=== PATIENT | male | born 1960 | race Caucasian/White ===

== ENCOUNTER 2017-07-04 14:42 | Inpatient (IN) | payer MEDICAID ==
[~2017-07-04] VITALS: Ht 182.9 cm; Wt 141.0 kg
[2017-07-04 16:48] LABS: BASOPHILS % (AUTO) 0.3 % (0-1); EOSINOPHILS # (AUTO) 0.1 X10'3 (0-0.9); EOSINOPHILS % (AUTO) 2.4 % (0-6); HEMATOCRIT 40.1 % (42.0-52.0); HEMOGLOBIN 13.7 g/dl (14.0-17.9); LYMPHOCYTES # (AUTO) 0.5 X10'3 (1.1-4.8); LYMPHOCYTES % (AUTO) 15.6 % (21-51); MEAN CORPUSCULAR HEMOGLOBIN 32.6 PG (27.0-31.0); MEAN CORPUSCULAR VOLUME 95.8 FL (78-98); MEAN PLATELET VOLUME 8.8 FL (7.4-10.4); MONOCYTES # (AUTO) 0.3 X10'3 (0-0.9); MONOCYTES % (AUTO) 10.1 % (2-12); NEUTROPHILS # (AUTO) 2.4 X10'3 (1.8-7.7); NEUTROPHILS % (AUTO) 71.6 % (42-75); PLATELET COUNT 59 X10'3 (140-440); RED BLOOD COUNT 4.19 X10'6 (4.70-6.10); RED CELL DISTRIBUTION WIDTH 15.1 % (11.5-14.5); WHITE BLOOD COUNT 3.4 X10'3 (4.5-11.0)
[2017-07-04 16:59] LABS: INR 1.3 INR; PARTIAL THROMBOPLASTIN TIME 32 SECONDS (22-32); PROTHROMBIN TIME 13.8 SECONDS (9.0-12.0)
[2017-07-04 17:04] LABS: ALBUMIN 2.3 G/DL (3.4-5.0); ANION GAP 8 (8-16); BILIRUBIN,TOTAL 1.4 MG/DL (0.1-1.0); BLOOD UREA NITROGEN 11 MG/DL (7-18); BUN/CREATININE RATIO 10.8 (5.4-32.0); CALCIUM 8.2 MG/DL (8.5-10.1); CHLORIDE 105 MMOL/L (99-107); CREATININE 1.02 MG/DL (0.60-1.10); POTASSIUM 3.8 MMOL/L (3.5-5.1); SODIUM 139 MMOL/L (135-145); TOTAL CARBON DIOXIDE 25.9 MMOL/L (24-32); TOTAL PROTEIN 7.4 G/DL (6.4-8.2); eGFR 76 ML/MIN
[2017-07-04 17:05] LABS: ALANINE AMINOTRANSFERASE 70 U/L (12-78); ALBUMIN/GLOBULIN RATIO 0.5 (1.1-1.5); ALKALINE PHOSPHATASE 75 IU/L (46-116); ASPARTATE AMINO TRANSFERASE 94 U/L (10-37)
[2017-07-04 17:08] LABS: GLUCOSE 126 MG/DL (70-104); LACTIC SEPSIS 2.1 MMOL/L (0.4-2.0)
[2017-07-04 17:14] LABS: CREATINE KINASE 252 U/L (39-308); ETHANOL < 0.010 GM/DL (0.0-0.010); MAGNESIUM 1.6 MG/DL (1.5-2.4); PHOSPHORUS 3.3 MG/DL (2.3-4.5)
[2017-07-04] MEDS ORDERED: lactulose 20gm/30ml cup PO ONE (17:50)
[2017-07-04] MEDS ORDERED: magnesium hydroxide 30ml (MOM) UD suspension PO PRN (18:40)
[2017-07-04] MEDS ORDERED: morphine 4 MG/ML inj SYRINge IV PRN (18:40)
[2017-07-04] MEDS ORDERED: ondansetron/PF 4mg/2ml inj IV PRN (18:40)
[2017-07-04] MEDS ORDERED: acetaminophen 325mg tablet PO PRN (18:40)
[2017-07-04] MEDS ORDERED: mag hydrox/Alum hydrox/simeth 30ml oral suspension PO PRN (18:40)
[2017-07-04] MEDS: lactulose 20gm/30ml cup PO SCH (19:05)
[2017-07-04] MEDS: furosemide 20MG tablet PO SCH (19:05)
[2017-07-04] MEDS: rifaximin 550mg tablet PO SCH (20:29)
[2017-07-04] MEDS: spironolactone 25 MG tablet PO SCH (20:29)
[2017-07-04] MEDS: HYDROcodone/acetaminophen 10/325mg tab PO PRN (20:33)
[2017-07-05] VITALS: BP 124/58
[2017-07-05] MEDS: HYDROcodone/acetaminophen 10/325mg tab PO PRN ×3 (01:36→10:10)
[2017-07-05 07:17] VITALS: BP 96/50
[2017-07-05] MEDS: furosemide 20MG tablet PO SCH ×2 (09:50→19:45)
[2017-07-05] MEDS: spironolactone 25 MG tablet PO SCH ×2 (09:50→19:45)
[2017-07-05] MEDS: clopidogrel 75mg tablet PO SCH (09:51)
[2017-07-05] MEDS: rifaximin 550mg tablet PO SCH ×2 (09:51→19:45)
[2017-07-05] MEDS: OLANZapine 2.5MG tablet PO SCH (09:51)
[2017-07-05] MEDS: lactulose 20gm/30ml cup PO SCH ×3 (09:54→20:56)
[2017-07-05 11:00] VITALS: BP 103/55
[2017-07-05] MEDS ORDERED: NO HOME MEDS (14:36)
[2017-07-05 19:00] VITALS: BP 105/76
[2017-07-06 00:03] VITALS: BP 92/47
[2017-07-06 08:00] VITALS: BP 108/64
[2017-07-06] MEDS: furosemide 20MG tablet PO SCH ×2 (10:07→19:38)
[2017-07-06] MEDS: OLANZapine 2.5MG tablet PO SCH (10:07)
[2017-07-06] MEDS: rifaximin 550mg tablet PO SCH ×2 (10:08→19:38)
[2017-07-06] MEDS: clopidogrel 75mg tablet PO SCH (10:08)
[2017-07-06] MEDS: spironolactone 25 MG tablet PO SCH ×2 (10:08→19:38)
[2017-07-06] MEDS: HYDROcodone/acetaminophen 10/325mg tab PO PRN ×3 (10:10→19:02)
[2017-07-06] MEDS: lactulose 20gm/30ml cup PO SCH ×3 (10:12→21:00)
[2017-07-06 11:13] VITALS: BP 118/76
[2017-07-06 20:00] VITALS: BP 124/78
[2017-07-07] MEDS: HYDROcodone/acetaminophen 10/325mg tab PO PRN ×3 (00:11→13:49)
[2017-07-07 07:18] VITALS: BP 137/77
[2017-07-07] MEDS: lactulose 20gm/30ml cup PO SCH ×3 (08:00→20:07)
[2017-07-07] MEDS: OLANZapine 2.5MG tablet PO SCH (08:59)
[2017-07-07] MEDS: clopidogrel 75mg tablet PO SCH (08:59)
[2017-07-07] MEDS: furosemide 20MG tablet PO SCH (08:59)
[2017-07-07] MEDS: spironolactone 25 MG tablet PO SCH (08:59)
[2017-07-07] MEDS: rifaximin 550mg tablet PO SCH ×2 (09:00→20:05)
[2017-07-07 11:40] VITALS: BP 132/82
[2017-07-07] MEDS: folic acid 1mg tablet PO SCH (14:35)
[2017-07-07] MEDS: thiamine 100mg tablet PO SCH (14:35)
[2017-07-07 14:42] LABS: BASOPHILS % (AUTO) 0.4 % (0-1); EOSINOPHILS # (AUTO) 0.2 X10'3 (0-0.9); EOSINOPHILS % (AUTO) 2.6 % (0-6); HEMATOCRIT 51.5 % (42.0-52.0); HEMOGLOBIN 17.1 g/dl (14.0-17.9); LYMPHOCYTES # (AUTO) 1.6 X10'3 (1.1-4.8); LYMPHOCYTES % (AUTO) 23.6 % (21-51); MEAN CORPUSCULAR HEMOGLOBIN 31.6 PG (27.0-31.0); MEAN CORPUSCULAR HGB CONC 33.3 % (33.0-36.5); MEAN CORPUSCULAR VOLUME 94.9 FL (78-98); MEAN PLATELET VOLUME 9.1 FL (7.4-10.4); MONOCYTES # (AUTO) 0.8 X10'3 (0-0.9); MONOCYTES % (AUTO) 12.1 % (2-12); NEUTROPHILS # (AUTO) 4.3 X10'3 (1.8-7.7); NEUTROPHILS % (AUTO) 61.3 % (42-75); PLATELET COUNT 66 X10'3 (140-440); RED BLOOD COUNT 5.43 X10'6 (4.70-6.10); RED CELL DISTRIBUTION WIDTH 14.9 % (11.5-14.5)
[2017-07-07 18:00] VITALS: BP 134/65
[2017-07-07] MEDS: lactobacillus rhamnosus 10,000 MMU CELLS/CAPSULE PO SCH (20:05)
[2017-07-07] MEDS: HYDROcodone/acetaminophen 5mg/325mg tablet PO PRN (20:06)
[2017-07-08 00:47] VITALS: BP 149/90
[2017-07-08] MEDS: HYDROcodone/acetaminophen 5mg/325mg tablet PO PRN ×3 (00:58→20:14)
[2017-07-08 08:00] VITALS: BP 134/69
[2017-07-08] MEDS: lactobacillus rhamnosus 10,000 MMU CELLS/CAPSULE PO SCH ×2 (08:23→20:13)
[2017-07-08] MEDS: furosemide 20MG tablet PO SCH (08:23)
[2017-07-08] MEDS: thiamine 100mg tablet PO SCH (08:23)
[2017-07-08] MEDS: lactulose 20gm/30ml cup PO SCH ×3 (08:24→20:13)
[2017-07-08] MEDS: OLANZapine 2.5MG tablet PO SCH (08:24)
[2017-07-08] MEDS: folic acid 1mg tablet PO SCH (08:24)
[2017-07-08] MEDS: rifaximin 550mg tablet PO SCH ×2 (08:27→20:13)
[2017-07-08 20:00] VITALS: BP 117/40
[2017-07-09 08:00] VITALS: BP 120/77
[2017-07-09] MEDS: thiamine 100mg tablet PO SCH (08:15)
[2017-07-09] MEDS: folic acid 1mg tablet PO SCH (08:15)
[2017-07-09] MEDS: furosemide 20MG tablet PO SCH (08:15)
[2017-07-09] MEDS: rifaximin 550mg tablet PO SCH ×2 (08:15→20:36)
[2017-07-09] MEDS: OLANZapine 2.5MG tablet PO SCH (08:15)
[2017-07-09] MEDS: lactulose 20gm/30ml cup PO SCH ×3 (08:16→20:35)
[2017-07-09] MEDS: lactobacillus rhamnosus 10,000 MMU CELLS/CAPSULE PO SCH ×2 (08:16→20:36)
[2017-07-09 09:19] LABS: BASOPHILS % (AUTO) 0.4 % (0-1); EOSINOPHILS # (AUTO) 0.2 X10'3 (0-0.9); EOSINOPHILS % (AUTO) 2.5 % (0-6); HEMATOCRIT 46.9 % (42.0-52.0); LYMPHOCYTES # (AUTO) 1.4 X10'3 (1.1-4.8); LYMPHOCYTES % (AUTO) 21.6 % (21-51); MEAN CORPUSCULAR HGB CONC 34.1 % (33.0-36.5); MEAN CORPUSCULAR VOLUME 93.6 FL (78-98); MONOCYTES # (AUTO) 0.7 X10'3 (0-0.9); MONOCYTES % (AUTO) 10.7 % (2-12); NEUTROPHILS # (AUTO) 4.2 X10'3 (1.8-7.7); NEUTROPHILS % (AUTO) 64.8 % (42-75); PLATELET COUNT 58 X10'3 (140-440); RED BLOOD COUNT 5.01 X10'6 (4.70-6.10); RED CELL DISTRIBUTION WIDTH 15.1 % (11.5-14.5); WHITE BLOOD COUNT 6.5 X10'3 (4.5-11.0)
[2017-07-09 09:31] LABS: LARGE PLATELETS FEW; PLATELET ESTIMATE DECREASED
[2017-07-09 09:40] LABS: ALANINE AMINOTRANSFERASE 61 U/L (12-78); ALBUMIN 2.4 G/DL (3.4-5.0); ALBUMIN/GLOBULIN RATIO 0.4 (1.1-1.5); ALKALINE PHOSPHATASE 75 IU/L (46-116); ANION GAP 9 (8-16); ASPARTATE AMINO TRANSFERASE 69 U/L (10-37); BILIRUBIN,TOTAL 1.6 MG/DL (0.1-1.0); BLOOD UREA NITROGEN 11 MG/DL (7-18); BUN/CREATININE RATIO 13.4 (5.4-32.0); CALCIUM 8.2 MG/DL (8.5-10.1); CHLORIDE 99 MMOL/L (99-107); CREATININE 0.82 MG/DL (0.60-1.10); POTASSIUM 3.4 MMOL/L (3.5-5.1); SODIUM 133 MMOL/L (135-145); TOTAL CARBON DIOXIDE 24.9 MMOL/L (24-32); TOTAL PROTEIN 8.2 G/DL (6.4-8.2); eGFR > 90 ML/MIN
[2017-07-09 09:45] LABS: GLUCOSE 163 MG/DL (70-104)
[2017-07-09 12:00] VITALS: BP 125/86
[2017-07-09] MEDS: HYDROcodone/acetaminophen 5mg/325mg tablet PO PRN ×2 (12:00→20:36)
[2017-07-09] MEDS ORDERED: MORP60CP14 PO (13:12)
[2017-07-09] MEDS ORDERED: ONDA4TAB12 PO (13:15)
[2017-07-09 20:00] VITALS: BP 120/82
[2017-07-10] MEDS: HYDROcodone/acetaminophen 5mg/325mg tablet PO PRN ×2 (06:06→19:02)
[2017-07-10 07:44] LABS: HIV ANTIBODY 1&2 RAPID NON-REACTIVE (Neg)
[2017-07-10 08:00] VITALS: BP 119/78
[2017-07-10] MEDS: furosemide 20MG tablet PO SCH (09:57)
[2017-07-10] MEDS: folic acid 1mg tablet PO SCH (09:57)
[2017-07-10] MEDS: lactobacillus rhamnosus 10,000 MMU CELLS/CAPSULE PO SCH ×2 (09:57→20:57)
[2017-07-10] MEDS: rifaximin 550mg tablet PO SCH ×2 (09:58→20:57)
[2017-07-10] MEDS: thiamine 100mg tablet PO SCH (09:58)
[2017-07-10] MEDS: OLANZapine 2.5MG tablet PO SCH (09:58)
[2017-07-10] MEDS: lactulose 20gm/30ml cup PO SCH ×3 (09:58→20:58)
[2017-07-10 11:06] VITALS: BP_SYST 115; BP_SYST 128; BP_DIAS 64; BP_DIAS 78
[2017-07-10 19:00] VITALS: BP 108/71
[2017-07-11] MEDS: HYDROcodone/acetaminophen 5mg/325mg tablet PO PRN ×4 (00:13→19:18)
[2017-07-11 07:18] VITALS: BP 124/74
[2017-07-11 07:34] LABS: RPR Non Reactive (Non Reactive)
[2017-07-11] MEDS: furosemide 20MG tablet PO SCH (08:14)
[2017-07-11] MEDS: lactulose 20gm/30ml cup PO SCH ×3 (08:14→21:48)
[2017-07-11] MEDS: OLANZapine 2.5MG tablet PO SCH (08:14)
[2017-07-11] MEDS: rifaximin 550mg tablet PO SCH ×2 (08:14→19:18)
[2017-07-11] MEDS: thiamine 100mg tablet PO SCH (08:15)
[2017-07-11] MEDS: lactobacillus rhamnosus 10,000 MMU CELLS/CAPSULE PO SCH ×2 (08:15→19:18)
[2017-07-11] MEDS: folic acid 1mg tablet PO SCH (08:15)
[2017-07-11] MEDS: LORazepam 1 MG tablet PO PRN ×2 (11:13→19:18)
[2017-07-11 15:13] LABS: HBSAG SCREEN Negative (Negative); HEP A AB, IGM Negative (Negative); HEP B CORE AB, IGM Negative (Negative); HEPATITIS C ANTIBODY >11.0 s/co ratio (0.0-0.9)
[2017-07-11 20:00] VITALS: BP 126/83
[2017-07-12] MEDS: HYDROcodone/acetaminophen 5mg/325mg tablet PO PRN (01:05)
[2017-07-12 08:00] VITALS: BP 101/47
[2017-07-12] MEDS: lactobacillus rhamnosus 10,000 MMU CELLS/CAPSULE PO SCH (09:47)
[2017-07-12] MEDS: lactulose 20gm/30ml cup PO SCH ×2 (09:47→15:34)
[2017-07-12] MEDS: folic acid 1mg tablet PO SCH (09:47)
[2017-07-12] MEDS: rifaximin 550mg tablet PO SCH (09:48)
[2017-07-12] MEDS: furosemide 20MG tablet PO SCH (09:48)
[2017-07-12] MEDS: OLANZapine 2.5MG tablet PO SCH (09:48)
[2017-07-12] MEDS: thiamine 100mg tablet PO SCH (09:48)
[2017-07-12] MEDS: LORazepam 1 MG tablet PO PRN (11:08)
[2017-07-12] MEDS ORDERED: ATI1T PO (12:41)
[2017-07-12] MEDS ORDERED: FURO20TA4 PO (12:41)
[2017-07-12] MEDS ORDERED: RIFA550T PO (12:41)
[2017-07-12] MEDS ORDERED: LACT10SO32 PO (12:41)
[2017-07-12] MEDS ORDERED: HYDR-569 PO (12:41)
== END 2017-07-12 16:27 | disposition home or self-care (01) | DRG 279 ==
LOC: ER 14:45 → ED HOLD 18:40 → SUR 3N 22:45 → ED HOLD 22:45 → SUR 3N 07-05 21:32 → OBSVTOIN 07-07 14:00 → SUR 3N 07-07 18:00
PROVIDERS: ADMIT Family Medicine; ATTEND Internal Medicine
DX: K72.90 Hepatic failure, unspecified without coma (principal); E87.2 Acidosis; D69.6 Thrombocytopenia, unspecified; Z68.41 Body mass index [BMI] 40.0-44.9, adult; K86.1 Other chronic pancreatitis; K70.30 Alcoholic cirrhosis of liver without ascites; E66.01 Morbid (severe) obesity due to excess calories; G89.4 Chronic pain syndrome; B19.20 Unspecified viral hepatitis C without hepatic coma; F12.90 Cannabis use, unspecified, uncomplicated; Z51.5 Encounter for palliative care; Z90.49 Acquired absence of other specified parts of digestive tract; Z59.0 Homelessness
CPT/HCPCS: 36415; 76700; 80053; 80074; 80320; 82140; 82550; 83605; 83735; 83880; 84100; 84443; 84484; 85025; 85610; 85730; 86592; 86703; 87040; 87070; 93005; 99285; G0378